=== PATIENT | male | born 1950 ===

== ENCOUNTER 2018-03-24 18:49 | Emergency (ER) | payer OTHER ==
[2018-03-24 19:10] VITALS: RESP 16
[2018-03-24] MEDS ORDERED: Lidocaine 2% Inj (20ml) INFIL ONE (19:10)
[2018-03-24] MEDS ORDERED: Tetanus/Diphtheria Toxoids 0.5 ml Syringe IM ONE ×2 (19:10→19:20)
[2018-03-24] MEDS ORDERED: Lidocaine 2% MPF (5 ml) Inj ONE (19:18)
--- NOTE | 2018-03-24 19:39 | C.PDOC ---
History Of Present Illness 67 yo male come in for evaluation of Left 4t hfinger laceration sustained [employer]. Pt sts, "sustained puncture wound to Left foot with nail, was trying to get nail out of my foot, lost balance, fell down and cut my finger over ceramic tike ". Noted laceration to Left 4th finger with bloody oozing. Otherwise, pt denies head injury, LOC, syncope, headache, neck pain, CP, denies deformity to Left hand or foot, denies weakness, sensory or vascular deficits to Left UE and LE. Ambulate to Ed for evaluation, not in any apparent distress. Time Seen by Provider: 03/24/18 18:56 Chief Complaint (Nursing): Abnormal Skin Integrity History Per: Patient Onset/Duration Of Symptoms: Sudden Onset Past Medical History Reviewed: Historical Data, Nursing Documentation, Vital Signs Vital Signs: Last Vital Signs Temp 98.9 F 03/24/18 19:09 Pulse 71 03/24/18 19:09 Resp 16 03/24/18 19:09 BP 134/87 03/24/18 19:09 Pulse Ox 98 03/24/18 19:42 - Medical History PMH: HTN Family History: States: No Known Family Hx - Social History Hx Alcohol Use: No Hx Substance Use: No - Immunization History Hx Tetanus Toxoid Vaccination: No Hx Influenza Vaccination: No Hx Pneumococcal Vaccination: No Review Of Systems Except As Marked, All Systems Reviewed And Found Negative. Eyes: Negative for: Vision Change ENT: Negative for: Ear Discharge, Nose Discharge Cardiovascular: Negative for: Chest Pain Gastrointestinal: Negative for: Vomiting Genitourinary: Negative for: Incontinence Musculoskeletal: Negative for: Neck Pain, Back Pain Skin: Positive for: Bruising Neurological: Negative for: Weakness, Numbness, Altered Mental Status, Headache , Dizziness Physical Exam - Physical Exam Appears: Well, Non-toxic, No Acute Distress Skin: Normal Color, Warm, Other (small puncture wound to plantar surface left heel. No edema, no erythema, no wound discharges, no proximal streaking) Head: Normacephalic Eye(s): bilateral: PERRL Nose: No Flaring Oral Mucosa: Moist, No Drooling Tongue: No Lesions, No Laceration Lips: No Laceration Neck: No Midline Cervical Tenderness, No Paracervical Tenderness, No Step Off Deformity, Supple Chest: Symmetrical Back: No Vertebral Tenderness, No Paraspinal Tenderness Extremity: Normal ROM (B/L UE and LE), Capillary Refill (less than 2sec to Left 4 th finger), No Deformity, Other ((+) 2cm cutaneous laceration lateral aspetc Left 4th finger involving 4th middle and distal phalanx, mild bloody oozing noted. FAROM of left 4th finger, no lig or tendon injury noted) Neurological/Psych: Oriented x3, Normal Speech, Normal Motor, Normal Sensation, Normal Reflexes ED Course And Treatment O2 Sat by Pulse Oximetry: 98 Laceration - Laceration Repair Left 4th finger Wound Length (In cm): 2cm Description Of Wound: Linear Anesthesia: Lidocaine 2% Wound Examination: Irrigated With Saline, No FB With Wound Exploration, No Tendon Injury With Wound Exploration Wound Closure: Suture (5-0) Suture Technique And Material Used: Interrupted, Nylon (#5) Wound Complexity: Simple Disposition Counseled Patient/Family Regarding: Diagnosis, Need For Followup, Rx Given - Disposition Referrals: Manuel Andujar MD [Medical Doctor] - Disposition: HOME/ ROUTINE Disposition Time: 19:42 Condition: STABLE Additional Instructions: take medication as prescribed Warm salty water foot soak daily for 5 minutes Apply antibiotic cream topicaly to wound daily keep wound dry, clean Suture removal in 10 days return to ED at any time if any sign of wound infection or any other new changes. Prescriptions: Ciprofloxacin [Cipro] 1 tab PO BID #14 tab Instructions: Laceration Repair With Stitches (DC), Wound Care (DC) Forms: [employer] (Swedish) - Clinical Impression Clinical Impression: Laceration, Puncture wound
[2018-03-24] MEDS ORDERED: Bacitracin 500 Units/gm Oint Foilpak UD ONE (19:58)
[2018-03-24 20:32] VITALS: BP 144/83; PULSE 70; TEMP 97.9; O2SAT 70
== END 2018-03-24 20:40 | disposition home or self-care (01) ==
LOC: C.ER 18:49
DX: S61.215A Laceration without foreign body of left ring finger without damage to nail, initial encounter (principal); W18.30XA Fall on same level, unspecified, initial encounter; S91.332A Puncture wound without foreign body, left foot, initial encounter; W45.0XXA Nail entering through skin, initial encounter; Z23 Encounter for immunization; I10 Essential (primary) hypertension